=== PATIENT | male | born 1965 | race Caucasian/White ===

== ENCOUNTER 2019-05-06 12:45 | Inpatient (IN) | payer OTHER ==
[~2019-05-06] VITALS: Ht 182.9 cm; Wt 67.2 kg
[2019-05-06] MEDS ORDERED: METO50 PO (13:00)
[2019-05-06 13:08] LABS: BASOPHILS ABSOLUTE AUTO 0.05 K/mm3 (0.00-0.23); BASOPHILS PERCENT AUTO 1 % (0-2); EOSINOPHILS ABSOLUTE AUTO 0.09 K/mm3 (0.00-0.68); EOSINOPHILS PERCENT AUTO 1 % (0-6); Hematocrit 49.4 % (37.0-53.0); IMMATURE GRAN ABSOLUTE AUTO 0.03 K/mm3 (0.00-0.10); IMMATURE GRAN PERCENT AUTO 0 % (0-1); LYMPHOCYTES ABSOLUTE AUTO 1.41 K/mm3 (0.84-5.20); LYMPHOCYTES PERCENT AUTO 14 % (21-46); MONOCYTES ABSOLUTE AUTO 0.71 K/mm3 (0.16-1.47); MONOCYTES PERCENT AUTO 7 % (4-13); Mean Corpuscular HGB 31.5 pg (26.0-34.0); Mean Corpuscular HGB Conc 32.4 g/dL (31.5-36.5); Mean Corpuscular Volume 97 fL (80-100); Mean Platelet Volume 11.5 fL (9.1-12.4); NEUTROPHILS ABSOLUTE AUTO 7.92 K/mm3 (1.96-9.15); NEUTROPHILS PERCENT AUTO 78 % (41-73); Platelet Count 268 K/mm3 (150-400); RDW Coefficient Variation 14.7 % (11.7-14.2); RDW Standard Deviation 52.6 fL (35.1-46.3); Red Blood Cell Count 5.08 M/mm3 (4.30-5.90); White Blood Cell Count 10.21 K/mm3 (4.00-11.30)
[2019-05-06 13:30] LABS: Alanine Aminotransfer (ALT/SGP 117 U/L (12-78); Albumin, Blood 3.2 g/dL (3.4-5.0); Alk Phos 108 U/L (50-136); Anion Gap 5 mmol/L (6-16); Aspartate Aminotrans (AST/SGOT 67 U/L (12-37); Bilirubin, Total 1.2 mg/dL (0.1-1.0); Blood Urea Nitrogen 21 mg/dL (8-24); Bun/Creatinine Ratio 20.4 (12.0-20.0); CO2, Blood 26 mmol/L (21-32); Calcium, Blood 8.3 mg/dL (8.5-10.1); Chloride, Blood 112 mmol/L (98-108); Creatinine, Blood 1.03 mg/dL (0.60-1.20); Globulin, Blood 3.1 g/dL (2.2-4.0); Glomerular Filtration Rate >60 (60-); Glucose, Blood 98 mg/dL (70-99); Potassium, Blood 4.6 mmol/L (3.5-5.5); Sodium, Blood 143 mmol/L (136-145); Total Protein, Blood 6.3 g/dL (6.4-8.2); Troponin I 0.081 ng/mL (0.000-0.040)
[2019-05-06] MEDS ORDERED: Aspirin EC81 MG PO (14:31)
[2019-05-06 17:13] LABS: Free Thyroxine 1.31 ng/dL (0.70-1.60)
--- NOTE | 2019-05-06 17:27 | NUR ---
Echocardiogram completed.
[2019-05-06 17:36] LABS: Troponin I 0.059 ng/mL (0.000-0.040)
[2019-05-07 00:43] LABS: BASOPHILS ABSOLUTE AUTO 0.06 K/mm3 (0.00-0.23); BASOPHILS PERCENT AUTO 1 % (0-2); EOSINOPHILS PERCENT AUTO 1 % (0-6); Hematocrit 49.4 % (37.0-53.0); Hemoglobin 16.1 g/dL (13.5-17.5); IMMATURE GRAN ABSOLUTE AUTO 0.02 K/mm3 (0.00-0.10); IMMATURE GRAN PERCENT AUTO 0 % (0-1); LYMPHOCYTES PERCENT AUTO 14 % (21-46); MONOCYTES PERCENT AUTO 6 % (4-13); Mean Corpuscular HGB 31.2 pg (26.0-34.0); Mean Corpuscular HGB Conc 32.6 g/dL (31.5-36.5); Mean Corpuscular Volume 96 fL (80-100); Mean Platelet Volume 11.2 fL (9.1-12.4); NEUTROPHILS ABSOLUTE AUTO 8.54 K/mm3 (1.96-9.15); NEUTROPHILS PERCENT AUTO 78 % (41-73); Platelet Count 262 K/mm3 (150-400); RDW Coefficient Variation 14.6 % (11.7-14.2); RDW Standard Deviation 51.3 fL (35.1-46.3); Red Blood Cell Count 5.16 M/mm3 (4.30-5.90); White Blood Cell Count 10.92 K/mm3 (4.00-11.30)
[2019-05-07 01:06] LABS: Alanine Aminotransfer (ALT/SGP 112 U/L (12-78); Albumin, Blood 3.3 g/dL (3.4-5.0); Albumin/Globulin Ratio 1.1 (0.8-1.8); Alk Phos 110 U/L (50-136); Anion Gap 8 mmol/L (6-16); Aspartate Aminotrans (AST/SGOT 59 U/L (12-37); Bilirubin, Total 1.1 mg/dL (0.1-1.0); Blood Urea Nitrogen 23 mg/dL (8-24); Bun/Creatinine Ratio 19.5 (12.0-20.0); CO2, Blood 29 mmol/L (21-32); Calcium, Blood 8.7 mg/dL (8.5-10.1); Chloride, Blood 106 mmol/L (98-108); Creatinine, Blood 1.18 mg/dL (0.60-1.20); Globulin, Blood 3.1 g/dL (2.2-4.0); Glomerular Filtration Rate >60 (60-); Glucose, Blood 107 mg/dL (70-99); Potassium, Blood 3.9 mmol/L (3.5-5.5); Sodium, Blood 143 mmol/L (136-145); Total Protein, Blood 6.4 g/dL (6.4-8.2)
--- NOTE | 2019-05-07 07:31 | NUR ---
ASSUMED CARE APPROXIMATELY 2100; PT TRANSFERED TO BED; AMBULATES TO BATHROOM; PT ON CARDIZEM GTT; ONCALL PROVIDER CALLED AT APPROXIMATELY 2320 AND WAS NOTIFIED OF BP; TOPOROL XL ORDERED PO; PT DENIED PAIN AND SLEPT WELL; APPROXIMATELY 0550 ONCALL PROVIDERED CALLED AND NOTIFIED OF BP, NO ORDERES AT THIS TIME; CALL LIGHT W/IN REACH; BED IN LOWEST POSITION; WILL CONTINUE TO ASSESS AND MONITOR UNTIL HANDOFF TO DAY SHIFT RN.
--- NOTE | 2019-05-07 07:40 | NUR ---
pt laying in bed awake a/ox3, pleasant and cooperative with care, follows commands well, denies pain or sob, he reports he was sob when he came in and has activity intolerance due to sob, but is better now, lungs are clear dim in bases, resp even and unlabord, no cough noted, is on 1 liter 02 via n/c for sleep, he is 97%, this was removed, on continuous oximetry, will monitor, may need o2 back on when moving about, hrirr, tele in place running afib per monitor, see strip, b/p is high, hr is between 70's and 90's, no edema noted, iv site is clear and patent, btx4, abd flat soft nontender, voids without diff, skin c/w/d, gabriel vieira, call light in reach.
--- NOTE | 2019-05-07 09:55 | NUR ---
cardiology consult called into cardiology office. pt states he feels good, is doing much better. no needs or complaints, in to see him. call light in reach.
--- NOTE | 2019-05-07 12:46 | NUR ---
pt napping, will check vs after he has a chance to sleep a bit. call light in reach.
--- NOTE | 2019-05-07 18:00 | NUR ---
PT HAS A GOOD APPETITE, NO COMPLAINTS, HE FEELS THAT HE IS BREATHING EASIER. NO FURTHER CHANGES THIS SHIFT. CALL LIGHT IN REACH.
[2019-05-08 03:50] LABS: BASOPHILS ABSOLUTE AUTO 0.08 K/mm3 (0.00-0.23); BASOPHILS PERCENT AUTO 1 % (0-2); EOSINOPHILS ABSOLUTE AUTO 0.13 K/mm3 (0.00-0.68); EOSINOPHILS PERCENT AUTO 2 % (0-6); Hemoglobin 17.8 g/dL (13.5-17.5); IMMATURE GRAN ABSOLUTE AUTO 0.02 K/mm3 (0.00-0.10); IMMATURE GRAN PERCENT AUTO 0 % (0-1); LYMPHOCYTES PERCENT AUTO 16 % (21-46); MONOCYTES PERCENT AUTO 7 % (4-13); Mean Corpuscular Volume 94 fL (80-100); Mean Platelet Volume 11.4 fL (9.1-12.4); NEUTROPHILS PERCENT AUTO 74 % (41-73); Platelet Count 273 K/mm3 (150-400); RDW Coefficient Variation 14.2 % (11.7-14.2); RDW Standard Deviation 48.7 fL (35.1-46.3); Red Blood Cell Count 5.74 M/mm3 (4.30-5.90); White Blood Cell Count 8.53 K/mm3 (4.00-11.30)
[2019-05-08 04:00] LABS: Anion Gap 5 mmol/L (6-16); Blood Urea Nitrogen 31 mg/dL (8-24); Bun/Creatinine Ratio 24.8 (12.0-20.0); CO2, Blood 31 mmol/L (21-32); Calcium, Blood 8.7 mg/dL (8.5-10.1); Chloride, Blood 102 mmol/L (98-108); Creatinine, Blood 1.25 mg/dL (0.60-1.20); Glomerular Filtration Rate >60 (60-); Glucose, Blood 119 mg/dL (70-99); Sodium, Blood 138 mmol/L (136-145)
--- NOTE | 2019-05-08 05:21 | NUR ---
SHIFT SUMMARY: PATIENT HR AVERAGING 90'S TO 110, INCREASES WITH ACTIVITY. PATIENT VSS, CALL LIGHT WITHIN REACH, BED LOW AND LOCKED.
--- NOTE | 2019-05-08 08:50 | NUR ---
INITIAL ASSESSMENT: biochemistry technician had called because patient had a run of V-Tach and heart rate was trending up into the 150s. When this RN entered the room patient was lying in bed watching TV, patient denies pain at this time or any time previous. Patient is alert and oriented. Patient seems to be agaitated that he is still here. Patient educated on current medications and treatment. Patient states he is worried about being in here and not being able to work and have income coming in. Patient educated re: current dx and the improtance of following through with therapy and the amount of time it takes to determine if treatment is effective or not. Heart rate is irregular. A-fib in the 130s per telemetry. Amiodarone started at 1mg/min per Dr. Malik previous orders. Will reassess for medicaton effectiveness. LS CTA. Biox 98% on 3L via NC. Oxygen titrated down to 2l via NC. BT +. PPP. No edema present at this time. VSS. AM meds given whole with water, no difficulty swallowing. Patient denies other needs at this time. When offered to obtain medication for his anxiety patient states, "I don't wanna take anymore pills." Patient denies other needs at this time. Call light in reach. Will continue to monitor.
--- NOTE | 2019-05-08 11:00 | NUR ---
Assessment: Assessment is unchanged from initial assessment. Dr. Delgado and Dr. Malik have been by. Dr. Malik did not see the patient, however she did say she would be back to see the patient. She is aware I had to start the amiodarone gtt. was showed the strip of V-Tach. states she will put in orders for a loading dose of PO Amiodarone. VSS. Patient is resting at this time. HR is in the 120s per telemetry, amiodarone continues to run at 1mg/min. Call light in reach, will continue to monitor.
--- NOTE | 2019-05-08 12:21 | NUR ---
PT SLEEPING, RESP EVEN AN NON LABORED. DOOR CLOSED FOR NOISE CONTROL.
--- NOTE | 2019-05-08 12:34 | NUR ---
NEW 18G IV STARTED TO RIGHT FA. IV TO LEFT AC REMOVED AND AREA DRESSED. IV MEDICATIONS INF TO NEW ACCESS. CALL LIGHT IN REACH. DOOR CLOSED FOR PT PRIVACY AND NOISE CONTROL.
--- NOTE | 2019-05-08 16:00 | NUR ---
REASSUMED CARE OF PATIENT. PT IS RESTING ON HIS RIGHT SIDE WITH EYES CLOSED, RESP E/U. CALL LIGHT IN REACH. VSS. WILL CONTINUE TO MONITOR.
--- NOTE | 2019-05-08 19:44 | NUR ---
PATIENT HAS DONE PRETTY WELL OVER ALL THROUGH OUT THE SHIFT. PT HAS BEEN STARTED ON AMIODARONE FOR RATE CONTROL. IV GTT IS CURRENTLY INFUSING AT 0.5MG/MIN AND PATIENT ALSO RECIEVED PO LOADING DOSE PER CARDIOLOGY ORDERS. HEART RATE HAS REMAINED 115-120S WITH AMIODARONE GTT AND PO. NO OTHER ACUTE CHANGES THIS SHIFT. REPORT GIVEN TO KHANH PANTOJA RN.
--- NOTE | 2019-05-09 04:03 | NUR ---
SHIFT SUMMARY: PATIENT AMIODERONE DRIP CONTINUED ALL SHIFT, PATIENT MAINTAINED HR BETWEEN 90'S AND UP TO 110. PATIENT SLEPT WELL, VSS, CALL LIGHT WITHIN REACH, BED LOW AND LOCKED.
--- NOTE | 2019-05-09 08:38 | NUR ---
Dr. Jin here to see the patient. New verbal orders received for meds;
--- NOTE | 2019-05-09 09:11 | NUR ---
Cardiology here again; states that the pt just converted to Normal sinus rhythm.
--- NOTE | 2019-05-09 14:25 | NUR ---
The pt has been lying in bed, refused a shower this morning, and napping on and off all day so far. HE awakens easily, and has no complaints. He has been waking up and eating all of his meals. States that he really wants to go home, and is very bored and when he is bored he states that he sleeps the day away.
--- NOTE | 2019-05-10 04:59 | NUR ---
SHIFT SUMMARY: SLEEP STUDY COMPLETED AT APPROX 0445 05/10/19. PATIENT VSS, NO ISSUES OVERNIGHT, BED LOW AND LOCKED, CALL LIGHT WITHIN REACH. PATIENTS HR REMAINED SR AND STABLE IN 70'S ALL SHIFT.
--- NOTE | 2019-05-10 08:02 | NUR ---
The pt has remained in normal sinus rhythm throughout the night. Sleep study was completed. The pt is awake, eating breakfast without complaints.
--- NOTE | 2019-05-10 08:45 | NUR ---
Pt states that he has no PCP. Remotely connected with the [facility]. Presently making phone calls to re-establish the pt with the [facility] for follow up and prescription filling today.
[2019-05-10] MEDS ORDERED: METO50ER PO (09:55)
[2019-05-10] MEDS ORDERED: Pacerone400 MG PO (09:56)
[2019-05-10] MEDS ORDERED: FURO40 PO (09:57)
[2019-05-10] MEDS ORDERED: LISI5 PO (09:57)
[2019-05-10] MEDS ORDERED: POTA10T PO (09:58)
[2019-05-10] MEDS ORDERED: XARELTO15 MG PO (09:59)
--- NOTE | 2019-05-10 11:37 | NUR ---
SUMMARY Called the pt's urgent care/clinic to set up appointment and was told that he cannot be followed as he is [facility]. [facility] informed us that pt has not been seen at [facility] facility since 2012, which pt states is because he wasn't sick and didn't need to see the doctor any more. Pt is not established with a provider at the [facility], which complicated the discharge process and the pt getting his follow up appointments and medications prescriptions filled. Spoke with Aminata Ramey, corporate event planner who gave me instructions for the patient. Pt was given printed
== END 2019-05-10 11:37 | disposition home or self-care (01) | DRG 308 ==
LOC: ER 12:45 → PCU 18:10 → ERHOLD 18:10 → PCU 20:31
PROVIDERS: Emergency Medicine; Internal Medicine; ADMIT Internal Medicine
DX: I48.2 Chronic atrial fibrillation (principal); I50.41 Acute combined systolic (congestive) and diastolic (congestive) heart failure; F17.220 Nicotine dependence, chewing tobacco, uncomplicated; Z79.82 Long term (current) use of aspirin
CPT/HCPCS: 36415; 71046; 80048; 80053; 83735; 83880; 84145; 84439; 84443; 84484; 85025; 93005; 93010; 93306; 94762; 96365-59; 96375-59; 96376-59; 99285-25; J0282; J1650; J1940; J2405; J7060

== ENCOUNTER 2024-05-30 16:18 | Inpatient (IN) | payer SELFPAY ==
[~2024-05-30] VITALS: Ht 182.9 cm; Wt 69.5 kg
[~2024-05-30 16:18] MED LIST: Aspirin EC81 MG PO; FURO40 PO; LISI5 PO; METO50 PO; METO50ER PO; POTA10T PO; Pacerone400 MG PO; XARELTO15 MG PO
[2024-05-30 16:52] LABS: BASOPHILS ABSOLUTE AUTO 0.05 K/mm3 (0.00-0.23); BASOPHILS PERCENT AUTO 1 % (0-2); EOSINOPHILS ABSOLUTE AUTO 0.09 K/mm3 (0.00-0.68); EOSINOPHILS PERCENT AUTO 1 % (0-6); Hematocrit 45.1 % (37.0-53.0); Hemoglobin 15.2 g/dL (13.5-17.5); IMMATURE GRAN ABSOLUTE AUTO 0.02 K/mm3 (0.00-0.10); IMMATURE GRAN PERCENT AUTO 0 % (0-1); LYMPHOCYTES ABSOLUTE AUTO 1.24 K/mm3 (0.84-5.20); LYMPHOCYTES PERCENT AUTO 20 % (21-46); MONOCYTES ABSOLUTE AUTO 0.36 K/mm3 (0.16-1.47); MONOCYTES PERCENT AUTO 6 % (4-13); Mean Corpuscular HGB 30.6 pg (26.0-34.0); Mean Corpuscular HGB Conc 33.7 g/dL (31.5-36.5); Mean Corpuscular Volume 91 fL (80-100); NEUTROPHILS ABSOLUTE AUTO 4.52 K/mm3 (1.96-9.15); NEUTROPHILS PERCENT AUTO 72 % (41-73); Platelet Count 241 K/mm3 (150-400); RDW Standard Deviation 49.8 fL (35.1-46.3); Red Blood Cell Count 4.96 M/mm3 (4.30-5.90); White Blood Cell Count 6.28 K/mm3 (4.00-11.30)
[2024-05-30 17:09] LABS: Albumin, Blood 3.3 g/dL (3.4-5.0); Albumin/Globulin Ratio 1.1 (0.8-1.8); Bilirubin, Total 1.1 mg/dL (0.1-1.0); Calcium, Blood 8.4 mg/dL (8.5-10.1); Creatinine, Blood 1.4 mg/dL (0.60-1.20); Globulin, Blood 3.1 g/dL (2.2-4.0); Potassium, Blood 4.1 mmol/L (3.5-5.5); Total Protein, Blood 6.4 g/dL (6.4-8.2)
[2024-05-30] MEDS ORDERED: Furosemide 10 MG/ML 4ML Vial IV ONE (17:35)
[2024-05-30] MEDS ORDERED: FLU VACC TS2024-25(6MOS UP)/PF 45 MCG/0.5 ML SYRINGE IM SCH (19:55)
[2024-05-30] MEDS ORDERED: Acetaminophen 325 MG TABLET PO PRN (19:55)
[2024-05-30] MEDS ORDERED: Ondansetron HCl 2 MG / ML 2ML Vial IV PRN (19:55)
[2024-05-30 21:02] LABS: U Amphetamine Screen DETECTED; U Barbituate Screen Not Detected; U Benzodiazapine Screen Not Detected; U Buprenorphine Screen Not Detected; U Cannabinoids Screen Not Detected; U Cocaine Screen Not Detected; U Methadone Screen Not Detected; U Methamphetamine Screen DETECTED; U Opiates Screen Not Detected; U Oxycodone Screen Not Detected; U Phencyclidine Screen Not Detected
[2024-05-30 21:37] LABS: Magnesium, Blood 1.9 mg/dL (1.6-2.4); Thyroid Stimulating Hormone 1.75 uIU/mL (0.360-4.800)
[2024-05-30 22:01] VITALS: BP 129/102
[2024-05-31 03:51] VITALS: BP 122/102
[2024-05-31 05:57] LABS: Calcium, Blood 8.7 mg/dL (8.5-10.1); Creatinine, Blood 1.37 mg/dL (0.60-1.20); Magnesium, Blood 2.1 mg/dL (1.6-2.4)
--- NOTE | 2024-05-31 06:02 | NUR ---
BUILDING INSULATION INSTALLER SUMMARY NO ACUTE DISTRESS OVERNIGHT. PT STILL HAS ORTHOPNEA AND BOOTHE. SAT MID 90S ON 2L, PLEASANT, ORIENTED X 4, VERY LOUD MURMOR (ECHO ORDERED FOR LATER TODAY), IV LASIX, HIGH URINE OUTPUT AFTER LASIX. 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 PT DENIES DRUG USE.
[2024-05-31 07:58] VITALS: BP 128/106
[2024-05-31] MEDS ORDERED: Heparin Sodium,Porcine 5,000 UNIT/0.5 ML SDV SC SCH (09:00)
[2024-05-31] MEDS ORDERED: Spironolactone 12.5 MG TAB PO SCH (09:00)
[2024-05-31] MEDS ORDERED: Metoprolol Succinate 25 MG TABCR PO SCH (09:00)
[2024-05-31] MEDS ORDERED: Furosemide 10 MG/ML 4ML Vial IV SCH (09:00)
[2024-05-31] MEDS ORDERED: Rivaroxaban 10 MG Tab PO SCH (09:00)
[2024-05-31 09:59] VITALS: BP 128/99
[2024-05-31] MEDS ORDERED: Empagliflozin 10 MG TAB PO SCH (12:00)
[2024-05-31 15:00] VITALS: BP 120/93
--- NOTE | 2024-05-31 17:49 | NUR ---
PATIENT IS ALERT AND ORIENTED AND COOPERATIVE WITH CARE. ECHO COMPLETED TODAY. DIURESING PER EMAR. NO C/O SOB OR CP. PATIENT STATES HE IS FEELING MUCH BETTER TODAY. USES THE URINAL INDEPENDENTLY. WILL CONTINUE TO MONITOR
[2024-05-31 20:32] VITALS: BP 113/95
--- NOTE | 2024-06-01 05:34 | NUR ---
SCALPER OPERATOR SUMMARY NO ACUTE EVENTS OVERNIGHT. PT HAS BEEN DIURESING WELL. REPORTS BREATHING MUCH EASIER. REPORTS MUCH LESS SOB WITH ACTIVITY.
[2024-06-01 05:57] VITALS: BP 131/100
[2024-06-01 07:42] VITALS: BP 137/97
[2024-06-01] MEDS ORDERED: XARELTO20 MG PO (14:45)
[2024-06-01] MEDS ORDERED: METO25ER PO (14:45)
[2024-06-01] MEDS ORDERED: JARDIANCE10 MG PO (14:45)
[2024-06-01] MEDS ORDERED: FURO20 PO (14:46)
[2024-06-01] MEDS ORDERED: ALDACTONE25 MG PO (14:46)
[2024-06-01 16:00] VITALS: BP 119/96
--- NOTE | 2024-06-01 17:24 | NUR ---
PT DISCHARGE DONE, PT SIGNED. AWATING O2 FROM [facility]. TO BE HERE SHORTLY. THEN RIDE TO TAKE HOME. PT AMBULATING ABOUT ROOM WELL. NEEDS 1-2 L WITH EXERTION. NO OTHER CONCERNS NOTED. BED IN LOW POSITION, CALL LITE IN [facility], CALLS APPROP
--- NOTE | 2024-06-01 18:17 | NUR ---
DISCHARGE REVIEWED WITH PT. PT VERBALIZED UNDERSTANDING MEDS, FOLLOWFUP, AND INST. IV PULLED BY FADY AND TELE REMOVED BY FADY. PT WHEELED TO DOOR AT 1820 BY FADY.
== END 2024-06-01 18:34 | disposition home or self-care (01) | DRG 291 ==
LOC: ER 16:18 → MEDS 19:51
PROVIDERS: Emergency Medicine; Nurse Practitioner Acute Care; ADMIT Student in an Organized Health Care Education/Training Program
DX: I13.0 Hypertensive heart and chronic kidney disease with heart failure and stage 1 through stage 4 chronic kidney disease, or unspecified chronic kidney disease (principal); I50.23 Acute on chronic systolic (congestive) heart failure; J96.01 Acute respiratory failure with hypoxia; J44.1 Chronic obstructive pulmonary disease with (acute) exacerbation; N17.9 Acute kidney failure, unspecified; I48.0 Paroxysmal atrial fibrillation; F17.290 Nicotine dependence, other tobacco product, uncomplicated; N18.9 Chronic kidney disease, unspecified
CPT/HCPCS: 36415; 71046; 80048; 80053; 83735; 83880; 84443; 84484; 85025; 93005; 93010; 93306; 94760; 94761; 96374; 99285-25; A9270; J1940

== ENCOUNTER → 2024-12-25 | Outpatient (CLI) | payer OTHER ==
[~2024-12-25] MED LIST changes: +ALDACTONE25 MG PO; +FURO20 PO; +JARDIANCE10 MG PO; +METO25ER PO; +XARELTO20 MG PO
[2024-12-25 11:59] LABS: Creatinine Urine 87.1 mg/dL (27.00-270.00); Protein, Urine Quantitative 16.5 mg/dL (0.0-11.9)
== END ==
LOC: LAB 07:00 → LAB SHORT 07:00
PROVIDERS: Internal Medicine Nephrology
DX: N18.30 Chronic kidney disease, stage 3 unspecified (principal); D63.1 Anemia in chronic kidney disease; N25.81 Secondary hyperparathyroidism of renal origin; E55.9 Vitamin D deficiency, unspecified; E29.1 Testicular hypofunction; R76.9 Abnormal immunological finding in serum, unspecified; R94.5 Abnormal results of liver function studies; R94.6 Abnormal results of thyroid function studies
CPT/HCPCS: 81050; 82043; 82570; 84156